=== PATIENT | female | born 1975 | race Caucasian/White ===

== ENCOUNTER 2017-10-09 17:21 | Inpatient (IN) | payer MEDICAID ==
[~2017-10-09] VITALS: Ht 149.9 cm; Wt 49.0 kg
[2017-10-09 17:27] VITALS: BP 108/72
--- NOTE | 2017-10-09 17:31 | NUR ---
PT SENT TO ER LOBBY TO WAIT FOR A BED. UA SPECIMEN CONTAINER PROVIDED.
--- NOTE | 2017-10-09 19:20 | NUR ---
42/F CAME IN W C/O 02/09 LOWER ABD PAIN, INTERMITTENT X 2 DAYS. ABD SOFT,ROUND, +TENDERNESS TO LOWER ABD. DENIES N/V/D, FEVER/CHILLS, HEMATURIA/DYSURIA. DENIES OTHER PMH/RX/OTC
[2017-10-09 19:57] LABS: BASOPHILS # (AUTO) 0.1 K/uL (0.00-0.22); BASOPHILS % (AUTO) 0.3 % (0.0-2.0); EOSINOPHILS # (AUTO) 0.1 K/uL (0-0.4); EOSINOPHILS % (AUTO) 0.5 % (0.0-4.0); HEMATOCRIT 41.1 % (36-48); HEMOGLOBIN 13.6 g/dL (12.0-16.0); LYMPHOCYTES # (AUTO) 2.2 K/uL (2.5-16.5); LYMPHOCYTES % (AUTO) 13.2 % (20.5-51.1); MEAN CORPUSCULAR HEMOGLOBIN 30 pg (27-31); MEAN CORPUSCULAR HGB CONC 33 g/dL (33-37); MEAN CORPUSCULAR VOLUME 90.7 fL (80-94); MONOCYTES # (AUTO) 1.2 K/uL (0.8-1.0); MONOCYTES % (AUTO) 7.5 % (1.7-9.3); NEUTROPHILS # (AUTO) 12.9 K/uL (1.8-7.7); NEUTROPHILS % (AUTO) 78.5 % (42.2-75.2); PLATELET COUNT (AUTO) 306 K/uL (140-450); RED BLOOD CELL COUNT(AUTO) 4.53 MIL/uL (4.20-5.40); WHITE BLOOD COUNT (AUTO) 16.5 K/uL (4.8-10.8)
[2017-10-09 20:09] LABS: ANION GAP 11.9 (8-16); CARBON DIOXIDE 28.6 mmol/L (21-32); CREATININE 0.7 mg/dL (0.6-1.3); POTASSIUM 3.5 mmol/L (3.5-5.1)
[2017-10-09 20:15] LABS: ALBUMIN 3.5 g/dL (3.4-5.0); TOTAL BILIRUBIN 0.5 mg/dL (0.0-1.0)
--- NOTE | 2017-10-09 20:34 | NUR ---
PT TAKEN TO CT
[2017-10-09] MEDS ORDERED: POTASSIUM CHL 20 MEQ/D5-1/2NS 1,000 ML IV ONE (21:45)
--- NOTE | 2017-10-09 22:09 | NUR ---
ABD SOFT, ROUND, NONRIGID. DENIES ANY PAIN AT THIS TIME
[2017-10-09] MEDS ORDERED: ACETAMINOPHEN 325 MG TAB PO PRN (22:10)
[2017-10-09] MEDS ORDERED: HYDROcodone/APAP 7.5/325 MG 1 TAB PO PRN (22:10)
[2017-10-09] MEDS ORDERED: MORPHINE SULFATE 2 MG/ML SYR IVP PRN (22:10)
[2017-10-09] MEDS ORDERED: PROMETHAZINE 25 MG/ML VIAL IM SCH (22:10)
[2017-10-09] MEDS ORDERED: DOCUSATE SODIUM 100 MG GELCAP PO PRN (22:10)
[2017-10-09] MEDS ORDERED: PIPERACILLIN/TAZOBACTAM 3.375 GM in DEXTROSE 5% 50 ML IV ONE (22:25)
[2017-10-09 22:36] LABS: APPEARANCE,URINE CLEAR (CLEAR); BARBITURATE, URINE NEG. ng/ml (NEG <=200); BENZODIAZEPINE, URINE NEG. ng/mL (NEG <=200); BILIRUBIN,URINE NEGATIVE (NEGATIVE); BLOOD, URINE 1+ (NEGATIVE); CANNABINOID, URINE NEG. ng/mL (NEG <=50); COCAINE, URINE NEG. ng/mL (NEG <=300); COLOR,URINE YELLOW (YELLOW); LEUKOCYTE ESTERASE ,URINE NEGATIVE (NEGATIVE); NITRITE, URINE NEGATIVE (NEGATIVE); OPIATE, URINE NEG. ng/mL (NEG <=2000); PH,URINE 6.5 (5.0-9.0); PHENCYCLIDINE SCREEN,URINE NEG. ng/mL (NEG <=25); UGLUCOSE NEGATIVE (NEGATIVE)
--- NOTE | 2017-10-09 22:36 | NUR ---
Pt transferred to Tele via bed room 119B with RN SRAVAN, EMT.
--- NOTE | 2017-10-09 22:36 | NUR ---
APatient will be admitted to care of [facility]. Admited to TELEE. Will go to room 119B. Belongings list completed. Report to RADHA CASTELLANOS.
[2017-10-09 22:40] VITALS: BP 107/64
[2017-10-09] MEDS: NACL 0.9% 1,000 ML IV SCH (22:40)
--- NOTE | 2017-10-09 22:40 | NUR ---
ADMITTED A 42F FROM ER . CAME BY CHRISTINA DUE TO ABDOMINAL PAIN X3 DAYS. AWAKE,ALERT AND ORIENTED X4, ON TELEMONITOR. . NO OTHER MEDICAL PROBLEM EXCEPT ONCE C -SECTION WITH TWINS. AMBULATORY. DENIES ANY PAIN AT THIS TIME. WITH IVF INFUSING WELL ON THE LT AC #18. CLEAR AND PATENT. INSTRUCTED ABOUT NPO STATUS DUE TO POSSIBLE SURGERY. ORIENTED TO HOSPITAL ENVIRONMENT. PLAN OF CARE DISCUSSED AN VERBALIZED UNDERSTANDING. BED ON LOW POSITION,CALL LIGHT PLACED WITHIN EASY REACH. WILL CONITNUE TO MONITOR.
[2017-10-09 22:49] LABS: PROTHROMBIN TIME 10.8 secs (10.8-13.4)
[2017-10-09 22:52] LABS: RBC,URINE 0-5 (RARE) /HPF (0-5); WBC,URINE 0-5 (RARE) /HPF (0-5)
[2017-10-09 22:54] LABS: CHOL/HDL RATIO 3.5 (1-4.5); FREE T4 (FREE THYROXINE) 1.01 ng/dL (0.76-1.46); MAGNESIUM 2.1 mg/dL (1.8-2.4); PHOSPHORUS 3.7 mg/dL (2.5-4.9); THYROID STIMULATING HORMONE 1.83 uIU/mL (0.34-3.74)
--- NOTE | 2017-10-09 23:30 | NUR ---
DR. BENITO CAME AND ASSESSED AND CHECKED ON PT.
--- NOTE | 2017-10-09 23:31 | NUR ---
CXR AND EKG DONE AT BEDSIDE.
[2017-10-09] MEDS ORDERED: PIPERACILLIN/TAZOBACTAM 3.375 GM VIAL IV ONE (23:40)
--- NOTE | 2017-10-09 23:45 | NUR ---
ZOSYN IVPB ALREADY STARTED IN ER. WILL GIVE NEXT DOSE IN AM .
[2017-10-10] VITALS (11 sets, daily range): BP systolic 100–114; BP diastolic 55–68
--- NOTE | 2017-10-10 02:00 | NUR ---
MADE ROUNDS. PT IS ASLEEP. NO S/S OF ANY DISCOMFORT NOTED.
--- NOTE | 2017-10-10 04:40 | NUR ---
DR. BENITO EXPLAINED THE SURGERY TO PT AND VERBALIZED UNDERSTANDING. PT SIGNED CONSENT FOR SURGERY TODAY.
[2017-10-10] MEDS: PIPER/TAZO 3.375GM/D5W PREMIX 50 ML IV SCH ×3 (05:29→17:11)
--- NOTE | 2017-10-10 06:15 | NUR ---
BLE SCD MACHINE APPLIED TO PT . MADE AWARE OF THE BENEFITS OF THE MACHINE.
--- NOTE | 2017-10-10 06:33 | NUR ---
PRE-OP BATH DONE THIS AM FOR SURGERY @0930.
--- NOTE | 2017-10-10 07:17 | NUR ---
ENDORSED PT IN STABLE CONDITION TO AM NURSE.
--- NOTE | 2017-10-10 07:18 | NUR ---
REPORT RECEIVED FROM TRANSCRIPT EVALUATOR NURSE AT BEDSIDE FOR CONTINUITY OF CARE. PATIENT AOX4, [place] CITIZ[place] SPEAKING BUT DOES UNDERSTAND AND CONVERSE IN [place]. RESPIRATIONS EVEN AND UNLABORED. PATIENT DENIES PAIN AT THE MOMENT. VITAL SIGNS WNL. IV TO LEFT AC #18 STILL INFUSING D5 1/2 NS 20 MEQ KCL @ 100 ML/HR FROM ER. UPDATED BOARD. VERBALIZED PLAN OF CARE. PATIENT VERBALIZED UNDERSTANDING. SAFETY PRECAUTION IN PLACE, CALL LIGHT WITHIN REACH. WILL CONTINUE TO MONITOR PATIENT.
[2017-10-10 07:28] LABS: BASOPHILS # (AUTO) 0.1 K/uL (0.00-0.22); BASOPHILS % (AUTO) 0.6 % (0.0-2.0); EOSINOPHILS # (AUTO) 0.1 K/uL (0-0.4); EOSINOPHILS % (AUTO) 0.9 % (0.0-4.0); HEMATOCRIT 38.9 % (36-48); HEMOGLOBIN 12.8 g/dL (12.0-16.0); LYMPHOCYTES # (AUTO) 1.8 K/uL (2.5-16.5); LYMPHOCYTES % (AUTO) 14.3 % (20.5-51.1); MEAN CORPUSCULAR HEMOGLOBIN 30 pg (27-31); MEAN CORPUSCULAR HGB CONC 33 g/dL (33-37); MEAN CORPUSCULAR VOLUME 91.2 fL (80-94); MONOCYTES # (AUTO) 1.1 K/uL (0.8-1.0); MONOCYTES % (AUTO) 8.9 % (1.7-9.3); NEUTROPHILS # (AUTO) 9.3 K/uL (1.8-7.7); NEUTROPHILS % (AUTO) 75.3 % (42.2-75.2); PLATELET COUNT (AUTO) 308 K/uL (140-450); RED BLOOD CELL COUNT(AUTO) 4.26 MIL/uL (4.20-5.40); RED CELL DISTRIBUTION WIDTH 13.2 % (11.6-13.7); WHITE BLOOD COUNT (AUTO) 12.3 K/uL (4.8-10.8)
[2017-10-10 08:03] LABS: ANION GAP 14.2 (8-16); CARBON DIOXIDE 24.3 mmol/L (21-32); CREATININE 0.6 mg/dL (0.6-1.3); POTASSIUM 3.5 mmol/L (3.5-5.1)
--- NOTE | 2017-10-10 08:11 | NUR ---
DR. SHARP CALLED TO CHECK UP ON PATIENT'S STATUS. REQUESTED INFORMATION ABOUT PATIENT'S NPO STATUS, AND HER CONSENT FOR SURGERY HAS BEEN SIGNED. PATIENT HAD BEEN NPO SINCE YESTERDAY IN AM, AND CONSENT FOR SURGERY HAS BEEN SIGNED. DR. SHARP SAID THAT EVERYTHING SHOULD BE GETTING READY AND PATIENT WILL BE PICKED UP TO GO TO SURGERY AT 0900. RN VERBALIZED UNDERSTANDING.
[2017-10-10] MEDS: LACTOBACILLUS RHAMNOSUS GG 1 EACH CAP PO SCH (09:00)
--- NOTE | 2017-10-10 09:14 | NUR ---
2 OR NURSES CAME TO TAKE PATIENT TO LAP APPY PROCEDURE. PATIENT TOOK OFF HER RING, IT WAS PLACED IN A BAG, AND PUT IN THE SIDE TABLE. PATIENT OFF MONITOR. PATIENT IN STABLE CONDITION.
[2017-10-10] MEDS ORDERED: ONDANSETRON 4 MG/2 ML VIAL ONE ×2 (09:15→11:44)
[2017-10-10] MEDS ORDERED: DESFLURANE 240 ML BTL INH ONE (09:15)
[2017-10-10] MEDS ORDERED: PROPOFOL 200 MG/20 ML VIAL IV ONE (09:15)
[2017-10-10] MEDS ORDERED: DEXAMETHASONE 4 MG/ML VIAL ONE (09:15)
[2017-10-10] MEDS ORDERED: SUCCINYLCHOLINE CHLORIDE 200 MG/10 ML VIAL IVP ONE (09:15)
[2017-10-10] MEDS ORDERED: LIDOCAINE 2% 100 MG/5 ML SYR IVP ONE (09:15)
[2017-10-10] MEDS ORDERED: MIDAZOLAM 2 MG/2 ML VIAL ONE (09:25)
[2017-10-10] MEDS ORDERED: fentaNYL 0.05 MG/ML VIAL ONE (09:25)
[2017-10-10] MEDS ORDERED: BUPIVACAINE-MPF 0.25% 30 ML VIAL INJ ONE (09:32)
[2017-10-10] MEDS ORDERED: ONDANSETRON 4 MG/2 ML VIAL IVP PRN (09:55)
[2017-10-10] MEDS ORDERED: MORPHINE SULFATE 4 MG/ML SYR IVP PRN (10:50)
[2017-10-10] MEDS: HYDROmorphone 1 MG/ML AMP IVP PRN ×4 (11:22→11:55)
[2017-10-10] MEDS ORDERED: HYDROmorphone PFS 2 MG/ML SYR ONE (11:24)
[2017-10-10] MEDS ORDERED: HYDROcodone/APAP 5/325 MG 1 TAB TAB PO PRN (11:45)
[2017-10-10] MEDS ORDERED: KETOROLAC 30 MG/ML VIAL IVP PRN (11:45)
--- NOTE | 2017-10-10 12:05 | NUR ---
PATIENT ARRIVED BACK ON FLOOR ACCOMPANIED BY 2 OR NURSES. PATIENT BACK ON MONITOR. PATIENT SLEEPING BUT AROUSABLE. VITAL SIGNS WITHIN NORMAL LIMITS. PATIENT HAS 3 SUTURES COVERED BY DRESSING, NO DRAINAGE NOTED. PATIENT DENIES PAIN. RESPIRATIONS EVEN AND UNLABORED. SAFETY PRECAUTION IN PLACE, CALL LIGHT WITHIN REACH. WILL CONTINUE TO MONITOR PATIENT.
--- NOTE | 2017-10-10 12:22 | NUR ---
ORDERED MEDICATION GIVEN. PATIENT TOLERATING IT WELL. PATIENT RESTING, VITAL SIGNS STABLE.
--- NOTE | 2017-10-10 14:13 | NUR ---
LEONARDO FROM [facility] CAME WITH INCENTIVE SPIROMETER, EDUCATION WAS GIVEN TO PATIENT, PATIENT STILL TIRED AND DENIES PAIN. PATIENT VERBALIZED UNDERSTANDING AND NODDED WHEN TOLD THAT SHE WILL NEED TO USE THE IS EVERY HOUR TO PREVENT PNEUMONIA. PATIENT RESTING IN BED, BROTHER AND FATHER AT BEDSIDE.
[2017-10-10] MEDS: NACL 0.9% 1,000 ML IV SCH (14:47)
--- NOTE | 2017-10-10 17:11 | NUR ---
ORDERED MEDICATION GIVEN. PATIENT TOLERATING IT WELL. PATIENT RESTING.
--- NOTE | 2017-10-10 17:47 | NUR ---
PATIENT AMBULATED ON STEADY GAIT WITH STANDBY ASSIST TO BATHROOM AND VOIDED. PATIENT VOMIT LIQUID EMESIS. OFFERED PATIENT PHENERGAN, SHE REFUSED. EDUCATED PATIENT. PATIENT VERBALIZED UNDERSTANDING BUT WANTS TO NOT TAKE ANY MORE MEDICATION AT THE MOMENT. PATIENT STATES THAT SHE WILL TAKE MEDICATIONS LATER IF SHE FEELS NAUSEOUS AND VOMITS AGAIN. SAFETY PRECAUTION IN PLACE, CALL LIGHT WITHIN REACH, WILL CONTINUE TO MONITOR PATIENT.
--- NOTE | 2017-10-10 19:05 | NUR ---
REPORT GIVEN TO SHIPPING SPECIALIST NURSE AT BEDSIDE FOR CONTINUITY OF CARE. PATIENT IN STABLE CONDITION.
--- NOTE | 2017-10-10 19:15 | NUR ---
RECEIVED PT IN STABLE CONDITION FROM AM NURSE. AWAKE,ALERT AND ORIENTED X4. WITH NO C/O ANY DISCOMFORT NOR PAIN NOTED ,S/P LAP APPENDECTOMY WITH X3 INCISIONS ON ABDOMEN WITH DRESSING DRY AND CLEAN. IVF INFUSING WELL ON THE LT AC#20 , CLEAR AND PATENT. VITAL SIGNS STABLE . PLAN OF CARE DISCUSSED AND VERBALIZED UNDERSTANDING. BED ON LOW POSITION,CALL LIGHT PLACED WITHIN EASY REACH. WILL CONITNUE TO MONITOR.
--- NOTE | 2017-10-10 21:00 | NUR ---
MADE ROUNDS. AWAKE, BUT NO C/O ANY DISCOMFORT NOTED.
--- NOTE | 2017-10-10 23:00 | NUR ---
ASLEEP. NO S/S OF ANY POST OP PAIN NOTED. WILL CONTINUE TO MONITOR .
--- NOTE | 2017-10-11 00:30 | NUR ---
UP TO THE BATHROOM BY SELF, VOIDED. AMBULATED WELL WITH NO C/O ANY PAIN NOTED. WHEN ASKED IF SHE NEED SOMETHING FOR PAIN SHE SAID NO PAIN. INSTRUCTED TO CALL IF PAIN START,THAN WAITING FOR PAIN TO BE TOO MUCH.
[2017-10-11] MEDS: PIPER/TAZO 3.375GM/D5W PREMIX 50 ML IV SCH ×5 (00:33→18:02)
[2017-10-11 00:37] VITALS: BP 109/53
--- NOTE | 2017-10-11 01:00 | NUR ---
NO ADVERSE EFFECTS OF ZOSYN NOTED. PT LYING IN BED WITH NO C/O VOICED. BED LOW AND CALL FERNANDES IN REACH.
--- NOTE | 2017-10-11 02:30 | NUR ---
MADE ROUNDS. PT IS ASLEEP. NO S/S OF ANY DISCOMFORT NOR PAIN NOTED.
[2017-10-11 03:49] VITALS: BP 102/53
--- NOTE | 2017-10-11 04:00 | NUR ---
PT IN BED ASLEEP NO S/S OF PAIN OR DISTRESS NOTED. CALL FERNANDES IN REACH.
--- NOTE | 2017-10-11 06:00 | NUR ---
UP IN THE BATHROOM THIS AM. NO C/O ANY PAIN. STILL WITH IVF INFUSING WELL.
[2017-10-11] MEDS: NACL 0.9% 1,000 ML IV SCH ×2 (06:01→07:27)
[2017-10-11 06:22] LABS: BASOPHILS % (AUTO) 0.3 % (0.0-2.0); EOSINOPHILS % (AUTO) 0.2 % (0.0-4.0); HEMATOCRIT 32.5 % (36-48); HEMOGLOBIN 10.8 g/dL (12.0-16.0); LYMPHOCYTES # (AUTO) 1.8 K/uL (2.5-16.5); LYMPHOCYTES % (AUTO) 11.3 % (20.5-51.1); MEAN CORPUSCULAR HEMOGLOBIN 30 pg (27-31); MEAN CORPUSCULAR HGB CONC 33 g/dL (33-37); MONOCYTES # (AUTO) 1.2 K/uL (0.8-1.0); MONOCYTES % (AUTO) 7.7 % (1.7-9.3); NEUTROPHILS # (AUTO) 12.9 K/uL (1.8-7.7); NEUTROPHILS % (AUTO) 80.5 % (42.2-75.2); PLATELET COUNT (AUTO) 283 K/uL (140-450); RED BLOOD CELL COUNT(AUTO) 3.61 MIL/uL (4.20-5.40); RED CELL DISTRIBUTION WIDTH 12.7 % (11.6-13.7)
[2017-10-11 06:39] LABS: ANION GAP 10.4 (8-16); CREATININE 0.5 mg/dL (0.6-1.3); POTASSIUM 3.4 mmol/L (3.5-5.1)
[2017-10-11 06:47] LABS: PHOSPHORUS 3.4 mg/dL (2.5-4.9)
--- NOTE | 2017-10-11 07:15 | NUR ---
ENDORSED PT IN STABLE CONDITION TO AM NURSE FOR CONTINUITY OF CARE.
--- NOTE | 2017-10-11 07:16 | NUR ---
RECEIVED BEDSIDE REPORT FROM VORTEX OPERATOR. PATIENT IS AWAKE, ALERT AND ORIENTEDX4. NO COMPLAINTS AT THIS TIME, EXCEPT THAT SHE WANTS TO GO HOME SOON TO HER DAUGHTERS. IV ON L AC 22G INFUSING NS AT 60ML/HR. IV IS CLEAN, DRY AND INTACT. NO COMPLAINTS OF PAIN AT THIS TIME. DRESSINGS ARE CLEAN, DRY AND INTACT. WILL DO DRESSING CHANGE LATER. BED IN LOW POSITION. CALL LIGHT WITHIN REACH. WILL CONTINUE TO MONITOR THE PATIENT.
[2017-10-11 08:00] VITALS: BP 112/68
[2017-10-11] MEDS: LACTOBACILLUS RHAMNOSUS GG 1 EACH CAP PO SCH (09:40)
--- NOTE | 2017-10-11 09:48 | NUR ---
ADMINISTERED MEDS. PATIENT TOLERATED WELL. BED IN LOW POSITION. CALL LIGHT WITHIN REACH. WILL CONTINUE TO MONITOR THE PATIENT.
[2017-10-11] MEDS ORDERED: POTASSIUM CHLORIDE 10 MEQ TABER PO SCH (12:00)
--- NOTE | 2017-10-11 12:56 | NUR ---
ADMINISTERED MEDS. PATIENT TOLERATED WELL. PATIENT COMPLAINS OF A LOW AND I GAVE HER TYLENOL. CLEANSED SURGICAL WOUNDS W NS AND PAT DRY. CHANGED DRESSINGS. TOOK PICTURES OF SURGICAL WOUND. HEATING K PAD FOR PAIN. BED IN LOW POSITION. CALL LIGHT WITHIN REACH. PATIENT DOES NOT WANT TO AMBULATE AT THIS TIME. SHE STATES SHE WILL AMBULATE IN ABOUT AN HOUR. WILL ASSIST PATIENT IN AMBULATION.
--- NOTE | 2017-10-11 14:02 | NUR ---
PATIENT STILL DOES NOT WANT TO AMBULATE AROUND THE HALLS. WILL TRY AGAIN LATER. EDUCATED HER ON THE IMPORTANCE OF AMBULATION. SHE HAS ALREADY AMBULATED TO THE RESTROOM. GAIT IS STEADY BUT I WILL ALSO AMBULATE WITH HER AROUND THE HALLS LATER.
--- NOTE | 2017-10-11 14:23 | NUR ---
PATIENT WALKED AROUND THE SOTO X2. SHE TOLERATED WELL. GAIT IS STEADY AND NO COMPLAINTS OF PAIN
--- NOTE | 2017-10-11 16:00 | NUR ---
PATIENT IS SLEEPING. NO SIGNS OF DISTRESS ON ROOM AIR. BED IN LOW POSITION. CALL LIGHT WITHIN REACH. WILL CONTINUE TO MONITOR THE PATIENT,
--- NOTE | 2017-10-11 18:04 | NUR ---
ADMINISTERED MEDS. IV IS CLEAN, DRY AND INTACT. BED IN LOW POSITION. CALL LIGHT WITHIN REACH. WILL CONTINUE TO MONITOR THE PATIENT.
--- NOTE | 2017-10-11 19:00 | NUR ---
GAVE BEDSIDE REPORT TO PUNCH PRESS OPERATOR HELPER NURSE. PATIENT IS IN STABLE CONDITION.
--- NOTE | 2017-10-11 19:20 | NUR ---
RECEIVED REPORT FROM [facility] REGARDING TRANSFER OF CARE AT BEDSIDE. PT IN STABLE CONDITION.
[2017-10-11 20:00] VITALS: BP 99/53
--- NOTE | 2017-10-11 21:00 | NUR ---
PT DENIES PAIN IN BED WITH K PACK ON BELLY. SURGICAL INCISIONS DRY AND INTACT. IV SITE PATENT AND RUNNING AT 60MLS HR OF NACL. PT LYING IN BED WITH CO VOICED AT THIS TIME. PT SAID SHE WANTED TO REST. BED IN LOW POSITION AND SIDE RAILS UP X2 WITH CALL FERNANDES IN REACH.
--- NOTE | 2017-10-11 23:00 | NUR ---
PT IN BED SLEEPING NO S/S OF PAIN OR DISTRESS NOTED.
[2017-10-12] MEDS: NACL 0.9% 1,000 ML IV SCH (00:02)
[2017-10-12] MEDS: PIPER/TAZO 3.375GM/D5W PREMIX 50 ML IV SCH (00:02)
[2017-10-12 06:13] LABS: T4 (THYROXINE) 7.5 ug/dL (4.5-12.0)
[2017-10-12 06:36] LABS: BASOPHILS # (AUTO) 0.1 K/uL (0.00-0.22); BASOPHILS % (AUTO) 0.7 % (0.0-2.0); EOSINOPHILS # (AUTO) 0.1 K/uL (0-0.4); EOSINOPHILS % (AUTO) 1.2 % (0.0-4.0); HEMATOCRIT 33.2 % (36-48); HEMOGLOBIN 11.1 g/dL (12.0-16.0); LYMPHOCYTES # (AUTO) 1.8 K/uL (2.5-16.5); LYMPHOCYTES % (AUTO) 19.7 % (20.5-51.1); MEAN CORPUSCULAR HEMOGLOBIN 30 pg (27-31); MEAN CORPUSCULAR HGB CONC 33 g/dL (33-37); MEAN CORPUSCULAR VOLUME 90.9 fL (80-94); MONOCYTES # (AUTO) 0.8 K/uL (0.8-1.0); MONOCYTES % (AUTO) 9.1 % (1.7-9.3); NEUTROPHILS # (AUTO) 6.2 K/uL (1.8-7.7); NEUTROPHILS % (AUTO) 69.3 % (42.2-75.2); PLATELET COUNT (AUTO) 279 K/uL (140-450); RED BLOOD CELL COUNT(AUTO) 3.66 MIL/uL (4.20-5.40); RED CELL DISTRIBUTION WIDTH 12.8 % (11.6-13.7)
[2017-10-12 07:01] VITALS: BP 105/75
[2017-10-12 07:10] LABS: ANION GAP 12.4 (8-16); CARBON DIOXIDE 25.1 mmol/L (21-32); CREATININE 0.7 mg/dL (0.6-1.3); POTASSIUM 3.5 mmol/L (3.5-5.1)
--- NOTE | 2017-10-12 07:20 | NUR ---
TRANSFER OF CARE TO DAYSHIFT NURSE AT BEDSIDE PT IN STABLE CONDITION
--- NOTE | 2017-10-12 07:21 | NUR ---
RECEIVED BEDSIDE REPORT FROM AREA FORESTER NURSE. PATIENT IS AWAKE. ALERT AND ORIENTEDX4. NO SIGNS OF DISTRESS ON ROOM AIR. IV IS ON L AC 22G INFUSING NS AT 60ML/HR. IV IS CLEAN, DRY AND INTACT. K PAD ON HER ABDOMEN. S/P LAP APPY DRESSING IS CLEAN, AND DRY. SHE AMBULATES STEADY TO THE RESTROOM. SCDS ARE IN PLACE. BED IN LOW POSITION. CALL LIGHT WITHIN REACH. WILL CONTINUE TO MONITOR THE PATIENT.
--- NOTE | 2017-10-12 08:37 | NUR ---
PATIENT HAS BEEN SCREENED AND CATEGORIZED LOW NUTRITION RISK. PATIENT WILL BE SEEN WITHIN 7 DAYS OF ADMISSION. 10/16/[address]
[2017-10-12] MEDS ORDERED: ACET-9525 PO (08:59)
[2017-10-12] MEDS ORDERED: LEVO750T2 PO (08:59)
[2017-10-12] MEDS ORDERED: METR250T2 PO (08:59)
[2017-10-12] MEDS: LACTOBACILLUS RHAMNOSUS GG 1 EACH CAP PO SCH (09:31)
--- NOTE | 2017-10-12 10:00 | NUR ---
ADMINISTERED MEDS. PATIENT TOLERATED WELL. MOM AT BEDSIDE.
--- NOTE | 2017-10-12 10:30 | NUR ---
EDUCATED PATIENT ON DISEASE PROCESS, HOW TO CARE FOR SURGICAL SITES (GAVE SUPPLIES TO CLEAN WOUND), ABN S/SX AND WHEN TO GO TO THE NEAREST ED, EXPLAINED HOW SHE HAS TO MAKE AN APPOINTMENT WITH DR SHARP TO FOLLOW UP WITHIN 3-5 DAYS, EDUCATED HER ON MEDS. PATIENT VERBALIZED UNDERSTANDING AND SIGNED PAPER WORK. CLEANSED WOUNDS WITH NS AND PAT DRY AND PLACED DRESSING. PICTURES TAKEN. IV IS REMOVED, TIP IS INTACT. PATIENT IS CHANGED AND LEFT WALKING WITH MOM AND MYSELF. PATIENT LEFT IN STABLE CONDITION.
== END 2017-10-12 10:30 | disposition home or self-care (01) | DRG 225 ==
LOC: MED 17:21 → MTU 22:11
PROVIDERS: ADMIT Family Medicine; ATTEND Family Medicine
PROC: 3E1M38Z Irrigation of Peritoneal Cavity using Irrigating Substance, Percutaneous Approach (ICD-10-PCS; 2017-10-10)
PROC: 0DNW3ZZ Release Peritoneum, Percutaneous Approach (ICD-10-PCS; 2017-10-10)
PROC: 0DTJ4ZZ Resection of Appendix, Percutaneous Endoscopic Approach (ICD-10-PCS; principal; 2017-10-10 09:30)
DX: K35.80 Unspecified acute appendicitis (principal); N17.0 Acute kidney failure with tubular necrosis; R65.11 Systemic inflammatory response syndrome (SIRS) of non-infectious origin with acute organ dysfunction; E78.5 Hyperlipidemia, unspecified; K66.0 Peritoneal adhesions (postprocedural) (postinfection); D64.9 Anemia, unspecified
CPT/HCPCS: 36415; 71045; 80048; 80053; 80305; 81001; 81025; 82150; 83036; 83690; 83735; 83880; 84100; 84436; 84439; 84443; 84479; 85025; 85610; 85730; 87081; 88304; 93005; 96365; 99285; J0330; J1100; J1170; J1644; J2001; J2250; J2405; J2543; J2704; J3010; J3490; J7030; J7060; Q0092